=== PATIENT | male | born 1965 | race African-American/Black ===

== ENCOUNTER 2020-05-18 19:55 | Outpatient (CLI) | payer BC | END 2020-05-18 19:56 | disposition home or self-care (01) | LOC: COV 19:55 | PROVIDERS: ATTEND Family Medicine | DX: R05 Cough (principal); R43.8 Other disturbances of smell and taste; R09.81 Nasal congestion; J34.89 Other specified disorders of nose and nasal sinuses; Z20.822 Contact with and (suspected) exposure to COVID-19 ==